=== PATIENT | female | born 1950 | race Caucasian/White ===

== ENCOUNTER 2019-03-16 01:40 | Outpatient (CLI) | payer OTHER, SELFPAY ==
[2019-03-16 08:59] LABS: Anion Gap 15.2 mmol/L (3-11); BUN 37 mg/dL (7-18); CO2 17.8 mmol/L (21.0-32.0); CREATININE 2.28 mg/dL (0.55-1.02); Calcium 7.3 mg/dL (8.5-10.1); Chloride 102 mmol/L (98-107); Estimated GFR 21.43 (mL/min/1.73m2); Glucose 122 mg/dL (70-100); Potassium 3.2 mmol/L (3.5-5.1); Sodium 135 mmol/L (136-145)
[2019-03-16 09:08] LABS: HCT 26.1 % (36.0-46.0); HGB 8.8 g/dL (12.0-15.5); Mean Corp. HGB Concentration 33.7 g/dL (32.0-36.0); Mean Corpuscular Hemoglobin 29.7 pg (27.0-33.0); Mean Corpuscular Volume 88.2 fL (80-95); Mean Platelet Volume 8.4 fL (8.0-11.0); RBC 2.96 m/cumm (4.00-5.20); RBC Distribution Width 15.6 % (11.7-14.6)
[2019-03-16 09:45] LABS: White Blood Cell Count 0.01 k/cumm (4.4-10.8)
[2019-03-16 09:46] LABS: Platelet Count 29 x1000/uL (130-400)
[2019-03-16 09:48] LABS: Diff Comment Diff Reviewed; RBC Morphology Normal
== END 2019-03-16 02:00 ==
PROVIDERS: Internal Medicine Hematology & Oncology; PCP Neuromusculoskeletal Medicine & OMM; Visit Provider Internal Medicine
DX: C90.00 Multiple myeloma not having achieved remission (principal)
CPT/HCPCS: 80048; 86850; 86900; 86901; 85025

== ENCOUNTER 2019-05-14 11:58 | Outpatient (CLI) | payer OTHER, SELFPAY ==
[2019-05-14 12:22] LABS: Anion Gap 9.6 mmol/L (3-11); BUN 20 mg/dL (7-18); CO2 29.4 mmol/L (21.0-32.0); CREATININE 1.96 mg/dL (0.55-1.02); Calcium 8.6 mg/dL (8.5-10.1); Chloride 101 mmol/L (98-107); Estimated GFR 25.52 (mL/min/1.73m2); Glucose 101 mg/dL (70-100); Potassium 3.8 mmol/L (3.5-5.1); Sodium 140 mmol/L (136-145)
== END 2019-05-14 12:18 ==
PROVIDERS: PCP Neuromusculoskeletal Medicine & OMM; Visit Provider Internal Medicine Nephrology
DX: N17.9 Acute kidney failure, unspecified (principal)
CPT/HCPCS: 36415; 80048

== ENCOUNTER 2019-05-16 10:08 | Outpatient (CLI) | payer OTHER, SELFPAY ==
[2019-05-16 10:34] LABS: Anion Gap 9.2 mmol/L (3-11); BUN 28 mg/dL (7-18); CO2 28.8 mmol/L (21.0-32.0); Calcium 8.2 mg/dL (8.5-10.1); Chloride 104 mmol/L (98-107); Estimated GFR 23.56 (mL/min/1.73m2); Glucose 94 mg/dL (70-100); Potassium 3.6 mmol/L (3.5-5.1); Sodium 142 mmol/L (136-145)
== END 2019-05-16 10:28 ==
PROVIDERS: Internal Medicine Nephrology; PCP Neuromusculoskeletal Medicine & OMM; Visit Provider Neuromusculoskeletal Medicine & OMM
DX: N17.9 Acute kidney failure, unspecified (principal)
CPT/HCPCS: 36415; 80048

== ENCOUNTER 2019-05-19 09:55 | Outpatient (CLI) | payer OTHER, SELFPAY ==
[2019-05-19 10:37] LABS: Anion Gap 10.8 mmol/L (3-11); BUN 27 mg/dL (7-18); CO2 24.2 mmol/L (21.0-32.0); CREATININE 1.94 mg/dL (0.55-1.02); Calcium 8.4 mg/dL (8.5-10.1); Chloride 108 mmol/L (98-107); Estimated GFR 25.82 (mL/min/1.73m2); Glucose 96 mg/dL (70-100); Potassium 4.3 mmol/L (3.5-5.1); Sodium 143 mmol/L (136-145)
== END 2019-05-19 10:15 ==
PROVIDERS: PCP Neuromusculoskeletal Medicine & OMM; Visit Provider Internal Medicine Nephrology
DX: N17.9 Acute kidney failure, unspecified (principal)
CPT/HCPCS: 36415; 80048

== ENCOUNTER 2019-05-25 11:07 | Outpatient (REF) | payer OTHER, SELFPAY ==
[2019-05-25 11:27] LABS: Abs Immature Grans 0.01 k/cumm (0.0-0.09); Absolute Basophil Count 0.05 k/cumm (0.0-0.2); Absolute Eosinophil Count 0.14 k/cumm (0.0-0.7); Absolute Lymphocyte Count 0.21 k/cumm (1.2-3.4); Absolute Monocyte Count 0.52 k/cumm (0.11-0.7); Basophils % 1.5; Eosinophils % 4.1; HCT 28.5 % (36.0-46.0); HGB 9.5 g/dL (12.0-15.5); Immature Grans % 0.3; Lymphocytes % 6.1; Mean Corp. HGB Concentration 33.3 g/dL (32.0-36.0); Mean Corpuscular Hemoglobin 36.3 pg (27.0-33.0); Mean Corpuscular Volume 108.8 fL (80-95); Mean Platelet Volume 9.5 fL (8.0-11.0); Monocytes % 15.2; Neutrophils % 72.8; Platelet Count 129 x1000/uL (130-400); RBC 2.62 m/cumm (4.00-5.20); RBC Distribution Width 17.9 % (11.7-14.6); White Blood Cell Count 3.43 k/cumm (4.4-10.8)
[2019-05-25 11:46] LABS: ALT 22 U/L (12-78); AST 14 U/L (15-37); Albumin 3.1 g/dL (3.4-5.0); Alkaline Phosphatase 84 U/L (46-116); Anion Gap 10.8 mmol/L (3-11); BUN 36 mg/dL (7-18); Bilirubin, Total 0.2 mg/dL (0.2-1.0); CO2 23.2 mmol/L (21.0-32.0); CREATININE 2.05 mg/dL (0.55-1.02); Calcium 8.8 mg/dL (8.5-10.1); Chloride 105 mmol/L (98-107); Estimated GFR 24.23 (mL/min/1.73m2); Glucose 112 mg/dL (70-100); Potassium 4.8 mmol/L (3.5-5.1); Sodium 139 mmol/L (136-145); Total Protein 8.1 g/dL (6.4-8.2)
[2019-05-25 11:52] LABS: Anisocytosis 2+; Diff Comment RBC Morph Reviewed; Macrocytosis 2+
[2019-05-26 12:07] LABS: Total Protein 7.5 g/dl (6.3-8.2)
[2019-05-26 15:43] LABS: IgA 13 mg/dL (85-499); IgG 1777 mg/dL (610-1616); IgM <12 mg/dL (35-242); Kappa Free Light Chain 66.46 mg/dl (0.33-1.94); Lambda Free Light Chain 1.02 mg/dl (0.57-2.63)
== END 2019-05-25 11:27 ==
LOC: LBN 11:07
PROVIDERS: PCP Neuromusculoskeletal Medicine & OMM; Visit Provider Internal Medicine Hematology & Oncology
DX: C90.00 Multiple myeloma not having achieved remission (principal); C90.20 Extramedullary plasmacytoma not having achieved remission
CPT/HCPCS: 80053; 82784; 83883; 84165; 85025

== ENCOUNTER 2019-06-11 10:57 | Outpatient (CLI) | payer OTHER, SELFPAY ==
[2019-06-11 11:19] LABS: Abs Immature Grans 0.03 k/cumm (0.0-0.09); Absolute Basophil Count 0.03 k/cumm (0.0-0.2); Absolute Eosinophil Count 0.44 k/cumm (0.0-0.7); Absolute Lymphocyte Count 0.27 k/cumm (1.2-3.4); Absolute Monocyte Count 0.99 k/cumm (0.11-0.7); Absolute Neutrophil Count 3.81 k/cumm (1.2-6.7); Basophils % 0.5; Eosinophils % 7.9; HCT 23.3 % (36.0-46.0); HGB 7.7 g/dL (12.0-15.5); Immature Grans % 0.5; Lymphocytes % 4.8; Mean Corpuscular Hemoglobin 35.6 pg (27.0-33.0); Mean Corpuscular Volume 107.9 fL (80-95); Mean Platelet Volume 10.4 fL (8.0-11.0); Monocytes % 17.8; Neutrophils % 68.5; Platelet Count 128 x1000/uL (130-400); RBC 2.16 m/cumm (4.00-5.20); RBC Distribution Width 15.6 % (11.7-14.6); White Blood Cell Count 5.57 k/cumm (4.4-10.8)
[2019-06-11 11:36] LABS: Diff Comment RBC Morph Reviewed; Macrocytosis 1+; Tear Drop Cells 2+
[2019-06-11 11:43] LABS: ALT 22 U/L (12-78); AST 12 U/L (15-37); Albumin 2.9 g/dL (3.4-5.0); Alkaline Phosphatase 83 U/L (46-116); Anion Gap 7.7 mmol/L (3-11); BUN 31 mg/dL (7-18); Bilirubin, Total 0.3 mg/dL (0.2-1.0); CO2 26.3 mmol/L (21.0-32.0); CREATININE 1.29 mg/dL (0.55-1.02); Calcium 8.7 mg/dL (8.5-10.1); Chloride 103 mmol/L (98-107); Estimated GFR 41.35 (mL/min/1.73m2); Glucose 114 mg/dL (70-100); Potassium 4.4 mmol/L (3.5-5.1); Sodium 137 mmol/L (136-145); Total Protein 7.5 g/dL (6.4-8.2)
[2019-06-12 10:01] LABS: IgA <13 mg/dL (85-499); IgG 1297 mg/dL (610-1616); IgM <12 mg/dL (35-242); Kappa Free Light Chain 22.42 mg/dl (0.33-1.94); Lambda Free Light Chain 1.07 mg/dl (0.57-2.63)
[2019-06-12 12:45] LABS: Albumin 50.8 % (55.8-66.1); Monoclonal Spike 14.1 %; Total Protein 6.6 g/dl (6.3-8.2)
== END 2019-06-11 11:17 ==
PROVIDERS: PCP Neuromusculoskeletal Medicine & OMM; Visit Provider Internal Medicine Hematology & Oncology
DX: C90.00 Multiple myeloma not having achieved remission (principal); C90.20 Extramedullary plasmacytoma not having achieved remission
CPT/HCPCS: 36415; 80053; 82784; 83883; 84165; 85025

== ENCOUNTER 2019-08-24 09:27 | Outpatient (CLI) | payer OTHER, SELFPAY ==
[2019-08-24 10:00] LABS: Absolute Basophil Count 0.05 k/cumm (0.0-0.2); Absolute Eosinophil Count 0.08 k/cumm (0.0-0.7); Absolute Lymphocyte Count 0.21 k/cumm (1.2-3.4); Absolute Monocyte Count 0.12 k/cumm (0.11-0.7); Basophils % 3.8; Eosinophils % 6.1; Mean Corp. HGB Concentration 33.3 g/dL (32.0-36.0); Mean Corpuscular Hemoglobin 35.6 pg (27.0-33.0); Mean Corpuscular Volume 106.8 fL (80-95); Mean Platelet Volume 9.3 fL (8.0-11.0); Monocytes % 9.2; Neutrophils % 64.9; Platelet Count 146 x1000/uL (130-400); RBC 3.09 m/cumm (4.00-5.20); RBC Distribution Width 15.6 % (11.7-14.6)
[2019-08-24 10:16] LABS: White Blood Cell Count 1.31 k/cumm (4.4-10.8)
[2019-08-24 10:17] LABS: Absolute Neutrophil Count 0.85 k/cumm (1.2-6.7); Diff Comment Diff Reviewed
[2019-08-24 10:18] LABS: Anisocytosis 1+; Macrocytosis 3+
== END 2019-08-24 09:47 ==
PROVIDERS: PCP Neuromusculoskeletal Medicine & OMM; Visit Provider Internal Medicine Hematology & Oncology
DX: C90.00 Multiple myeloma not having achieved remission (principal); C90.20 Extramedullary plasmacytoma not having achieved remission
CPT/HCPCS: 36415; 85025

== ENCOUNTER 2020-03-10 01:48 | Outpatient (CLI) | payer OTHER, SELFPAY ==
[2020-03-10 11:23] LABS: Abs Immature Grans 0.01 k/cumm (0.0-0.09); Absolute Basophil Count 0.08 k/cumm (0.0-0.2); Absolute Eosinophil Count 0.21 k/cumm (0.0-0.7); Absolute Lymphocyte Count 0.44 k/cumm (1.2-3.4); Absolute Monocyte Count 0.45 k/cumm (0.11-0.7); Absolute Neutrophil Count 1.41 k/cumm (1.2-6.7); Basophils % 3.1; Eosinophils % 8.1; HCT 33.1 % (36.0-46.0); HGB 10.8 g/dL (12.0-15.5); Immature Grans % 0.4 %; Lymphocytes % 16.9; Mean Corp. HGB Concentration 32.6 g/dL (32.0-36.0); Mean Corpuscular Hemoglobin 33.8 pg (27.0-33.0); Mean Corpuscular Volume 103.4 fL (80-95); Mean Platelet Volume 11.5 fL (8.0-11.0); Monocytes % 17.3; Neutrophils % 54.2; RBC Distribution Width 14.9 % (11.7-14.6)
[2020-03-10 11:28] LABS: ALT 51 U/L (14-59); AST 27 U/L (15-37); Alkaline Phosphatase 71 U/L (46-116); BUN 30 mg/dL (7-18); Bilirubin, Total 0.3 mg/dL (0.2-1.0); CREATININE 1.12 mg/dL (0.55-1.02); Calcium 8.9 mg/dL (8.5-10.1); Chloride 103 mmol/L (98-107); Estimated GFR 48.52 (mL/min/1.73m2); Glucose 87 mg/dL (74-106); Sodium 141 mmol/L (136-145); Total Protein 7.8 g/dL (6.4-8.2)
[2020-03-10 11:36] LABS: Platelet Count 69 x1000/uL (130-400)
[2020-03-10 11:37] LABS: Diff Comment PLT Morph Reviewed; RBC Morphology Normal
[2020-03-11 13:58] LABS: Albumin 60.3 % (55.8-66.1); Monoclonal Spike 7.3 % (None Seen); Total Protein 7.6 g/dL (6.3-8.2)
[2020-03-14 12:02] LABS: IgA 51 mg/dL (85-499); IgG 1557 mg/dL (610-1,616); IgM 32 mg/dL (35-242); Kappa Free Light Chain 18.41 mg/dL (0.33-1.94)
== END 2020-03-10 02:08 ==
PROVIDERS: PCP Neuromusculoskeletal Medicine & OMM; Visit Provider Internal Medicine Hematology & Oncology
DX: C90.00 Multiple myeloma not having achieved remission (principal); C90.20 Extramedullary plasmacytoma not having achieved remission
CPT/HCPCS: 36415; 80053; 82784; 83883; 84165; 85025

== ENCOUNTER 2020-05-05 02:31 | Outpatient (CLI) | payer OTHER, SELFPAY ==
[2020-05-05 12:15] LABS: Abs Immature Grans 0.01 k/cumm (0.0-0.09); Absolute Basophil Count 0.07 k/cumm (0.0-0.2); Absolute Lymphocyte Count 0.35 k/cumm (1.2-3.4); Absolute Monocyte Count 0.81 k/cumm (0.11-0.7); Absolute Neutrophil Count 1.69 k/cumm (1.2-6.7); Basophils % 2.2; Eosinophils % 6.4; HGB 10.3 g/dL (12.0-15.5); Immature Grans % 0.3 %; Lymphocytes % 11.2; Mean Corp. HGB Concentration 33.2 g/dL (32.0-36.0); Mean Corpuscular Hemoglobin 35.2 pg (27.0-33.0); Mean Corpuscular Volume 105.8 fL (80-95); Mean Platelet Volume 10.8 fL (8.0-11.0); Monocytes % 25.9; Platelet Count 122 x1000/uL (130-400); RBC 2.93 m/cumm (4.00-5.20); RBC Distribution Width 14.5 % (11.7-14.6); White Blood Cell Count 3.13 k/cumm (4.4-10.8)
[2020-05-05 12:38] LABS: Basophilic Stippling Present; Diff Comment RBC Morph Reviewed; Macrocytosis 3+
[2020-05-05 12:39] LABS: Polychromasia Present
[2020-05-05 12:40] LABS: Poikilocytes 1+
== END 2020-05-05 02:51 ==
PROVIDERS: PCP Neuromusculoskeletal Medicine & OMM; Visit Provider Internal Medicine Hematology & Oncology
DX: C90.01 Multiple myeloma in remission (principal)
CPT/HCPCS: 36415; 85025

== ENCOUNTER 2020-08-18 02:11 | Outpatient (RCR) | payer OTHER, SELFPAY ==
[2020-08-04 09:17] LABS: Abs Immature Grans 0.01 10^3/uL (0.0-0.06); Absolute Basophil Count 0.01 10^3/uL (0.0-0.2); Absolute Eosinophil Count 0.01 10^3/uL (0.0-0.7); Absolute Monocyte Count 0.44 10^3/uL (0.1-0.8); Absolute Neutrophil Count 1.51 10^3/uL (1.2-6.7); Basophils % 0.5; Eosinophils % 0.5; HCT 23.3 % (36.0-46.0); Immature Grans % 0.5; Lymphocytes % 4.8; MCH 35.9 pg (27.0-33.0); MCHC 34.3 % (32.0-36.0); MCV 104.5 fL (80-95); MPV 10.1 fL (8.0-11.0); Monocytes % 21.2; Neutrophils % 72.5; Nucleated RBC 0 %; Platelet Count 115 10^3/uL (130-400); RBC 2.23 10^6/uL (3.93-5.22); RDW 25.2 % (11.7-14.6); RDW-SD 87.9 fL; WBC 2.08 10^3/uL (4.4-10.8)
[2020-08-04] MEDS: Normal Saline Flush 10 ML SYR IVP (09:38)
[2020-08-04 09:40] LABS: Anisocytosis 3+; Diff Comment RBC Morph Reviewed
[2020-08-04 09:41] LABS: Macrocytosis 2+; Microcytosis 1+; Polychromasia Present
[2020-08-04 09:42] LABS: Poikilocytes 1+
[2020-08-04 09:44] LABS: ALT 21 U/L (14-59); AST 16 U/L (15-37); Albumin 3.3 g/dL (3.4-5.0); Alkaline Phosphatase 176 U/L (46-116); Anion Gap 7.1 mmol/L (3-11); BUN 13 mg/dL (7-18); Bilirubin, Total 0.3 mg/dL (0.2-1.0); CO2 26.9 mmol/L (21.0-32.0); CREATININE 1.31 mg/dL (0.55-1.02); Calcium 8.1 mg/dL (8.5-10.1); Chloride 104 mmol/L (98-107); Estimated GFR 40.38 (mL/min/1.73m2); Glucose 91 mg/dL (74-106); Potassium 3.3 mmol/L (3.5-5.1); Sodium 138 mmol/L (136-145); Total Protein 7.6 g/dL (6.4-8.2)
[2020-08-11] MEDS: Normal Saline Flush 10 ML SYR IVP (08:23)
[2020-08-11 08:26] LABS: Abs Immature Grans 0.01 10^3/uL (0.0-0.06); Absolute Basophil Count 0.01 10^3/uL (0.0-0.2); Absolute Eosinophil Count 0.02 10^3/uL (0.0-0.7); Absolute Lymphocyte Count 0.07 10^3/uL (1.2-3.4); Absolute Monocyte Count 0.39 10^3/uL (0.1-0.8); Absolute Neutrophil Count 1.84 10^3/uL (1.2-6.7); Basophils % 0.4; Eosinophils % 0.9; HCT 24.4 % (36.0-46.0); HGB 8.1 g/dL (11.2-15.7); Immature Grans % 0.4; MCH 35.8 pg (27.0-33.0); MCHC 33.2 % (32.0-36.0); MPV 11.1 fL (8.0-11.0); Monocytes % 16.7; Neutrophils % 78.6; Nucleated RBC 0 %; RBC 2.26 10^6/uL (3.93-5.22); RDW 25.8 % (11.7-14.6); RDW-SD 94.5 fL; WBC 2.34 10^3/uL (4.4-10.8)
[2020-08-11 08:39] LABS: ALT 18 U/L (14-59); AST 12 U/L (15-37); Albumin 3.1 g/dL (3.4-5.0); Alkaline Phosphatase 141 U/L (46-116); Anion Gap 8.6 mmol/L (3-11); BUN 14 mg/dL (7-18); Bilirubin, Total 0.3 mg/dL (0.2-1.0); CO2 26.4 mmol/L (21.0-32.0); CREATININE 1.24 mg/dL (0.55-1.02); Chloride 107 mmol/L (98-107); Estimated GFR 43.02 (mL/min/1.73m2); Glucose 99 mg/dL (74-106); Sodium 142 mmol/L (136-145); Total Protein 6.9 g/dL (6.4-8.2)
[2020-08-11 09:00] LABS: Diff Comment RBC Morph Reviewed; Platelet Count 85 10^3/uL (130-400)
[2020-08-11 09:01] LABS: Anisocytosis 3+; Macrocytosis 2+; Poikilocytes 2+
[2020-08-18] MEDS: Normal Saline Flush 10 ML SYR IVP (08:21)
[2020-08-18 08:26] LABS: Absolute Eosinophil Count 0.03 10^3/uL (0.0-0.7); Absolute Lymphocyte Count 0.14 10^3/uL (1.2-3.4); Absolute Monocyte Count 0.36 10^3/uL (0.1-0.8); Absolute Neutrophil Count 1.38 10^3/uL (1.2-6.7); Eosinophils % 1.6; HCT 21.4 % (36.0-46.0); HGB 7.3 g/dL (11.2-15.7); Lymphocytes % 7.3; MCH 36.5 pg (27.0-33.0); MCHC 34.1 % (32.0-36.0); MPV 11.3 fL (8.0-11.0); Monocytes % 18.8; Neutrophils % 72.3; Nucleated RBC 0 %
[2020-08-18 08:48] LABS: WBC 1.91 10^3/uL (4.4-10.8)
[2020-08-18 08:49] LABS: Platelet Count 76 10^3/uL (130-400)
[2020-08-18 08:50] LABS: Anisocytosis 3+; Diff Comment Diff Reviewed; Hypochromasia 2+; Macrocytosis 2+; Microcytosis 2+
[2020-08-18 08:51] LABS: Polychromasia Present
[2020-08-18 08:52] LABS: Poikilocytes 2+
[2020-08-18 09:14] LABS: ALT 12 U/L (14-59); AST 14 U/L (15-37); Albumin 3.2 g/dL (3.4-5.0); Alkaline Phosphatase 117 U/L (46-116); BUN 12 mg/dL (7-18); Bilirubin, Total 0.3 mg/dL (0.2-1.0); CREATININE 1.09 mg/dL (0.55-1.02); Calcium 8.1 mg/dL (8.5-10.1); Chloride 108 mmol/L (98-107); Estimated GFR 49.92 (mL/min/1.73m2); Glucose 109 mg/dL (74-106); Sodium 143 mmol/L (136-145); TSH 4.74 uIU/mL (0.36-3.74); Total Protein 6.6 g/dL (6.4-8.2)
[2020-08-18 09:18] LABS: Potassium 2.9 mmol/L (3.5-5.1)
== END 2020-08-24 23:59 | disposition home or self-care (01) ==
LOC: INF 02:11
PROVIDERS: PCP Neuromusculoskeletal Medicine & OMM; Visit Provider Internal Medicine Hematology & Oncology
DX: E03.9 Hypothyroidism, unspecified (principal); C90.02 Multiple myeloma in relapse
CPT/HCPCS: 36415; 36591; 80053; 84443; 85025

== ENCOUNTER 2020-09-15 03:13 | Outpatient (RCR) | payer OTHER, SELFPAY ==
[2020-08-25 08:39] LABS: Abs Immature Grans 0.01 10^3/uL (0.0-0.06); Absolute Basophil Count 0.01 10^3/uL (0.0-0.2); Absolute Eosinophil Count 0.03 10^3/uL (0.0-0.7); Absolute Lymphocyte Count 0.16 10^3/uL (1.2-3.4); Absolute Monocyte Count 0.46 10^3/uL (0.1-0.8); Absolute Neutrophil Count 2.01 10^3/uL (1.2-6.7); Basophils % 0.4; Eosinophils % 1.1; HCT 23.6 % (36.0-46.0); Immature Grans % 0.4; MCH 38.6 pg (27.0-33.0); MCHC 33.9 % (32.0-36.0); MPV 12.2 fL (8.0-11.0); Monocytes % 17.2; Neutrophils % 74.9; Nucleated RBC 0 %; Platelet Count 100 10^3/uL (130-400); RBC 2.07 10^6/uL (3.93-5.22); RDW 22.8 % (11.7-14.6); RDW-SD 91.3 fL; WBC 2.68 10^3/uL (4.4-10.8)
[2020-08-25 08:50] LABS: ALT 12 U/L (14-59); AST 10 U/L (15-37); Albumin 3.3 g/dL (3.4-5.0); Alkaline Phosphatase 110 U/L (46-116); Anion Gap 7.1 mmol/L (3-11); BUN 9 mg/dL (7-18); Bilirubin, Total 0.3 mg/dL (0.2-1.0); CO2 27.9 mmol/L (21.0-32.0); CREATININE 0.97 mg/dL (0.55-1.02); Calcium 7.9 mg/dL (8.5-10.1); Chloride 107 mmol/L (98-107); Estimated GFR 57.11 (mL/min/1.73m2); Glucose 129 mg/dL (74-106); Potassium 3.4 mmol/L (3.5-5.1); Sodium 142 mmol/L (136-145); Total Protein 6.5 g/dL (6.4-8.2)
[2020-08-25 09:04] LABS: Anisocytosis 3+; Diff Comment RBC Morph Reviewed; Macrocytosis 2+; Microcytosis 1+; Polychromasia Present
[2020-08-25 09:05] LABS: Poikilocytes 2+
[2020-09-01] MEDS: Normal Saline Flush 10 ML SYR IVP (08:17)
[2020-09-01 08:28] LABS: Abs Immature Grans 0.01 10^3/uL (0.0-0.06); Absolute Basophil Count 0.02 10^3/uL (0.0-0.2); Absolute Eosinophil Count 0.04 10^3/uL (0.0-0.7); Absolute Lymphocyte Count 0.17 10^3/uL (1.2-3.4); Absolute Monocyte Count 0.44 10^3/uL (0.1-0.8); Absolute Neutrophil Count 2.72 10^3/uL (1.2-6.7); Basophils % 0.6; Eosinophils % 1.2; HCT 27.7 % (36.0-46.0); HGB 9.1 g/dL (11.2-15.7); Immature Grans % 0.3; MCH 37.4 pg (27.0-33.0); MCHC 32.9 % (32.0-36.0); MPV 10.5 fL (8.0-11.0); Monocytes % 12.9; Nucleated RBC 0 %; Platelet Count 163 10^3/uL (130-400); RBC 2.43 10^6/uL (3.93-5.22); RDW 19.4 % (11.7-14.6); RDW-SD 81.3 fL
[2020-09-01 08:41] LABS: ALT 15 U/L (14-59); AST 11 U/L (15-37); Albumin 3.5 g/dL (3.4-5.0); Alkaline Phosphatase 107 U/L (46-116); Anion Gap 11.4 mmol/L (3-11); BUN 13 mg/dL (7-18); Bilirubin, Total 0.3 mg/dL (0.2-1.0); CO2 25.6 mmol/L (21.0-32.0); CREATININE 1.08 mg/dL (0.55-1.02); Calcium 8.3 mg/dL (8.5-10.1); Chloride 105 mmol/L (98-107); Estimated GFR 50.45 (mL/min/1.73m2); Glucose 107 mg/dL (74-106); Potassium 3.3 mmol/L (3.5-5.1); Sodium 142 mmol/L (136-145); Total Protein 6.7 g/dL (6.4-8.2)
[2020-09-01 08:43] LABS: Diff Comment Diff Reviewed; Microcytosis 2+; Polychromasia Present
[2020-09-01 08:44] LABS: Poikilocytes 1+
[2020-09-02 12:06] LABS: IgA <13 mg/dL (85-499); IgG 1010 mg/dL (610-1,616); IgM <12 mg/dL (35-242); Kappa Free Light Chain 3.75 mg/dL (0.33-1.94); Lambda Free Light Chain <0.44 mg/dL (0.57-2.63)
[2020-09-02 12:38] LABS: Albumin 60.8 % (55.8-66.1); Comment (See Note); Monoclonal Spike 11.4 % (None Seen); Total Protein 6.6 g/dL (6.3-8.2)
[2020-09-02 15:25] LABS: Immunotyping, Serum (See Note)
[2020-09-08] MEDS: Normal Saline Flush 10 ML SYR IVP (08:23)
[2020-09-08 08:27] LABS: Absolute Eosinophil Count 0.06 10^3/uL (0.0-0.7); Absolute Lymphocyte Count 0.16 10^3/uL (1.2-3.4); Absolute Monocyte Count 0.52 10^3/uL (0.1-0.8); Absolute Neutrophil Count 2.87 10^3/uL (1.2-6.7); Eosinophils % 1.7; HCT 27.4 % (36.0-46.0); Lymphocytes % 4.4; MCH 38.3 pg (27.0-33.0); MCHC 32.8 % (32.0-36.0); MCV 116.6 fL (80-95); MPV 11.1 fL (8.0-11.0); Monocytes % 14.4; Neutrophils % 79.5; Nucleated RBC 0 %; RBC 2.35 10^6/uL (3.93-5.22); RDW 17.5 % (11.7-14.6); RDW-SD 75.7 fL; WBC 3.61 10^3/uL (4.4-10.8)
[2020-09-08 08:47] LABS: Anisocytosis 2+; Diff Comment RBC Morph Reviewed; Macrocytosis 3+; Platelet Count 90 10^3/uL (130-400)
[2020-09-08 08:48] LABS: Poikilocytes 2+; Polychromasia Present
[2020-09-15] MEDS: Normal Saline Flush 10 ML SYR IVP (08:19)
[2020-09-15 08:34] LABS: Abs Immature Grans 0.02 10^3/uL (0.0-0.06); Absolute Basophil Count 0.01 10^3/uL (0.0-0.2); Absolute Eosinophil Count 0.05 10^3/uL (0.0-0.7); Absolute Lymphocyte Count 0.11 10^3/uL (1.2-3.4); Absolute Monocyte Count 0.46 10^3/uL (0.1-0.8); Basophils % 0.3; Eosinophils % 1.4; HCT 28.9 % (36.0-46.0); HGB 9.4 g/dL (11.2-15.7); Immature Grans % 0.5; MCH 38.1 pg (27.0-33.0); MCHC 32.5 % (32.0-36.0); Monocytes % 12.6; Neutrophils % 82.2; Nucleated RBC 0 %; RBC 2.47 10^6/uL (3.93-5.22); WBC 3.65 10^3/uL (4.4-10.8)
[2020-09-15 08:47] LABS: Anisocytosis 2+; Diff Comment PLT Morph Reviewed; Macrocytosis 3+; Platelet Count 92 10^3/uL (130-400)
[2020-09-15 08:48] LABS: Poikilocytes 2+; Polychromasia Present
== END 2020-09-24 23:59 | disposition home or self-care (01) ==
LOC: INF 03:13
PROVIDERS: PCP Neuromusculoskeletal Medicine & OMM; Visit Provider Internal Medicine Hematology & Oncology
DX: C90.02 Multiple myeloma in relapse (principal)
CPT/HCPCS: 36591; 80053; 82784; 83883; 84165; 85025; 86320

== ENCOUNTER 2020-10-13 01:28 | Outpatient (RCR) | payer OTHER, SELFPAY ==
[2020-09-29 08:25] LABS: Abs Immature Grans 0.01 10^3/uL (0.0-0.06); Absolute Basophil Count 0.04 10^3/uL (0.0-0.2); Absolute Eosinophil Count 0.08 10^3/uL (0.0-0.7); Absolute Lymphocyte Count 0.16 10^3/uL (1.2-3.4); Absolute Monocyte Count 0.65 10^3/uL (0.1-0.8); Absolute Neutrophil Count 4.09 10^3/uL (1.2-6.7); Basophils % 0.8; Eosinophils % 1.6; HCT 35.5 % (36.0-46.0); HGB 11.7 g/dL (11.2-15.7); Immature Grans % 0.2; Lymphocytes % 3.2; MCV 115.3 fL (80-95); MPV 10.5 fL (8.0-11.0); Monocytes % 12.9; Neutrophils % 81.3; Nucleated RBC 0 %; Platelet Count 185 10^3/uL (130-400); RBC 3.08 10^6/uL (3.93-5.22); RDW 14.8 % (11.7-14.6); RDW-SD 63.3 fL; WBC 5.03 10^3/uL (4.4-10.8)
[2020-09-29] MEDS: Normal Saline Flush 10 ML SYR IVP (08:39)
[2020-09-29 08:43] LABS: Anisocytosis 1+; Diff Comment RBC Morph Reviewed; Macrocytosis 3+; Polychromasia Present
[2020-09-29 08:48] LABS: ALT 15 U/L (14-59); AST 11 U/L (15-37); Albumin 3.9 g/dL (3.4-5.0); Alkaline Phosphatase 75 U/L (46-116); Anion Gap 8.3 mmol/L (3-11); BUN 18 mg/dL (7-18); Bilirubin, Total 0.3 mg/dL (0.2-1.0); CO2 26.7 mmol/L (21.0-32.0); CREATININE 1.04 mg/dL (0.55-1.02); Calcium 8.7 mg/dL (8.5-10.1); Chloride 106 mmol/L (98-107); Glucose 104 mg/dL (74-106); Potassium 4.2 mmol/L (3.5-5.1); Sodium 141 mmol/L (136-145); Total Protein 7.1 g/dL (6.4-8.2)
[2020-10-06] MEDS: Normal Saline Flush 10 ML SYR IVP (08:08)
[2020-10-06 08:50] LABS: Abs Immature Grans 0.01 10^3/uL (0.0-0.06); Absolute Basophil Count 0.02 10^3/uL (0.0-0.2); Absolute Eosinophil Count 0.07 10^3/uL (0.0-0.7); Absolute Lymphocyte Count 0.11 10^3/uL (1.2-3.4); Absolute Monocyte Count 0.71 10^3/uL (0.1-0.8); Basophils % 0.5; Eosinophils % 1.7; HCT 35.6 % (36.0-46.0); HGB 11.9 g/dL (11.2-15.7); Immature Grans % 0.2; Lymphocytes % 2.6; MCH 38.1 pg (27.0-33.0); MCHC 33.4 % (32.0-36.0); MCV 114.1 fL (80-95); MPV 11.6 fL (8.0-11.0); Monocytes % 16.8; Neutrophils % 78.2; Nucleated RBC 0 %; RBC 3.12 10^6/uL (3.93-5.22); RDW-SD 58.7 fL; WBC 4.22 10^3/uL (4.4-10.8)
[2020-10-06 09:10] LABS: Diff Comment RBC Morph Reviewed; Macrocytosis 3+; Platelet Count 104 10^3/uL (130-400)
[2020-10-06 09:11] LABS: Poikilocytes 2+
[2020-10-06 09:31] LABS: ALT 15 U/L (14-59); AST 11 U/L (15-37); Albumin 3.9 g/dL (3.4-5.0); Alkaline Phosphatase 73 U/L (46-116); Anion Gap 9.4 mmol/L (3-11); BUN 18 mg/dL (7-18); Bilirubin, Total 0.3 mg/dL (0.2-1.0); CO2 26.6 mmol/L (21.0-32.0); CREATININE 1.01 mg/dL (0.55-1.02); Calcium 8.9 mg/dL (8.5-10.1); Chloride 106 mmol/L (98-107); Estimated GFR 54.51 (mL/min/1.73m2); Glucose 108 mg/dL (74-106); Potassium 3.9 mmol/L (3.5-5.1); Sodium 142 mmol/L (136-145)
[2020-10-07 11:52] LABS: IgA 3 mg/dL (61-356); IgG 774 mg/dL (767-1590); IgM 5 mg/dL (37-286)
[2020-10-07 11:54] LABS: Albumin 3.7 g/dL (3.4-4.7); Total Protein 6.7 g/dL (6.3-7.9)
[2020-10-07 11:55] LABS: Monoclonal Spike 0.7 g/dL
[2020-10-07 11:56] LABS: Comment See Comments
[2020-10-07 11:58] LABS: Immunotyping, Serum See Comments
[2020-10-13 09:05] LABS: Abs Immature Grans 0.02 10^3/uL (0.0-0.06); Absolute Basophil Count 0.02 10^3/uL (0.0-0.2); Absolute Eosinophil Count 0.08 10^3/uL (0.0-0.7); Absolute Lymphocyte Count 0.16 10^3/uL (1.2-3.4); Absolute Monocyte Count 0.72 10^3/uL (0.1-0.8); Absolute Neutrophil Count 4.76 10^3/uL (1.2-6.7); Basophils % 0.3; Eosinophils % 1.4; HCT 34.6 % (36.0-46.0); HGB 11.8 g/dL (11.2-15.7); Immature Grans % 0.3; Lymphocytes % 2.8; MCH 38.3 pg (27.0-33.0); MCHC 34.1 % (32.0-36.0); MCV 112.3 fL (80-95); MPV 9.7 fL (8.0-11.0); Monocytes % 12.5; Neutrophils % 82.7; Nucleated RBC 0 %; Platelet Count 101 10^3/uL (130-400); RBC 3.08 10^6/uL (3.93-5.22); RDW 13.5 % (11.7-14.6); RDW-SD 55.9 fL; WBC 5.76 10^3/uL (4.4-10.8)
[2020-10-13] MEDS: Normal Saline Flush 10 ML SYR IVP (09:17)
[2020-10-13 09:42] LABS: ALT 18 U/L (14-59); AST 12 U/L (15-37); Albumin 3.8 g/dL (3.4-5.0); Alkaline Phosphatase 72 U/L (46-116); BUN 22 mg/dL (7-18); Bilirubin, Total 0.2 mg/dL (0.2-1.0); CREATININE 0.99 mg/dL (0.55-1.02); Calcium 8.7 mg/dL (8.5-10.1); Chloride 106 mmol/L (98-107); Estimated GFR 55.78 (mL/min/1.73m2); Glucose 120 mg/dL (74-106); Sodium 142 mmol/L (136-145); Total Protein 6.9 g/dL (6.4-8.2)
== END 2020-10-24 23:59 | disposition home or self-care (01) ==
LOC: INF 01:28
PROVIDERS: PCP Neuromusculoskeletal Medicine & OMM; Visit Provider Internal Medicine Hematology & Oncology
DX: C90.02 Multiple myeloma in relapse (principal)
CPT/HCPCS: 36591; 80053; 82784; 83883; 84165; 85025; 86320

== ENCOUNTER 2020-11-10 00:56 | Outpatient (RCR) | payer OTHER, SELFPAY ==
[2020-10-27] MEDS: Normal Saline Flush 10 ML SYR IVP (08:21)
[2020-10-27 08:24] LABS: Abs Immature Grans 0.02 10^3/uL (0.0-0.06); Absolute Basophil Count 0.02 10^3/uL (0.0-0.2); Absolute Eosinophil Count 0.09 10^3/uL (0.0-0.7); Absolute Lymphocyte Count 0.17 10^3/uL (1.2-3.4); Absolute Monocyte Count 0.56 10^3/uL (0.1-0.8); Absolute Neutrophil Count 4.66 10^3/uL (1.2-6.7); Basophils % 0.4; Eosinophils % 1.6; HCT 32.8 % (36.0-46.0); HGB 10.8 g/dL (11.2-15.7); Immature Grans % 0.4; Lymphocytes % 3.1; MCH 36.4 pg (27.0-33.0); MCHC 32.9 % (32.0-36.0); MCV 110.4 fL (80-95); MPV 10.4 fL (8.0-11.0); Monocytes % 10.1; Neutrophils % 84.4; Nucleated RBC 0 %; Platelet Count 180 10^3/uL (130-400); RBC 2.97 10^6/uL (3.93-5.22); RDW 12.8 % (11.7-14.6); RDW-SD 51.7 fL; WBC 5.52 10^3/uL (4.4-10.8)
[2020-10-27 08:49] LABS: ALT 20 U/L (14-59); AST 13 U/L (15-37); Albumin 3.9 g/dL (3.4-5.0); Alkaline Phosphatase 75 U/L (46-116); BUN 22 mg/dL (7-18); Bilirubin, Total 0.3 mg/dL (0.2-1.0); CREATININE 1.08 mg/dL (0.55-1.02); Calcium 8.5 mg/dL (8.5-10.1); Chloride 107 mmol/L (98-107); Estimated GFR 50.45 (mL/min/1.73m2); Glucose 120 mg/dL (74-106); Potassium 3.4 mmol/L (3.5-5.1); Sodium 143 mmol/L (136-145); Total Protein 6.8 g/dL (6.4-8.2)
[2020-10-27 09:12] LABS: Anisocytosis 1+; Diff Comment RBC Morph Reviewed; Hypochromasia 1+; Macrocytosis 2+; Poikilocytes 1+
[2020-10-28 10:40] LABS: IgA <13 mg/dL (85-499); IgG 537 mg/dL (610-1,616); IgM <12 mg/dL (35-242); Kappa Free Light Chain 1.54 mg/dL (0.33-1.94); Lambda Free Light Chain <0.44 mg/dL (0.57-2.63)
[2020-10-28 15:31] LABS: Albumin 65.3 % (55.8-66.1); Comment (See Note); Monoclonal Spike 6.5 % (None Seen); Total Protein 6.5 g/dL (6.3-8.2)
[2020-11-03] MEDS: Normal Saline Flush 10 ML SYR IVP (07:58)
[2020-11-03 08:03] LABS: Abs Immature Grans 0.01 10^3/uL (0.0-0.06); Absolute Lymphocyte Count 0.15 10^3/uL (1.2-3.4); Absolute Neutrophil Count 4.15 10^3/uL (1.2-6.7); Eosinophils % 1.9; HCT 32.1 % (36.0-46.0); HGB 10.8 g/dL (11.2-15.7); Immature Grans % 0.2; Lymphocytes % 2.9; MCH 36.2 pg (27.0-33.0); MCHC 33.6 % (32.0-36.0); MCV 107.7 fL (80-95); MPV 11.4 fL (8.0-11.0); Monocytes % 15.4; Neutrophils % 79.6; Nucleated RBC 0 %; Platelet Count 100 10^3/uL (130-400); RBC 2.98 10^6/uL (3.93-5.22); RDW 12.7 % (11.7-14.6); RDW-SD 50.1 fL; WBC 5.21 10^3/uL (4.4-10.8)
[2020-11-03 08:22] LABS: ALT 20 U/L (14-59); AST 11 U/L (15-37); Albumin 3.9 g/dL (3.4-5.0); Alkaline Phosphatase 74 U/L (46-116); BUN 19 mg/dL (7-18); Bilirubin, Total 0.3 mg/dL (0.2-1.0); CREATININE 1.09 mg/dL (0.55-1.02); Calcium 8.7 mg/dL (8.5-10.1); Chloride 107 mmol/L (98-107); Estimated GFR 49.92 (mL/min/1.73m2); Glucose 100 mg/dL (74-106); Potassium 4.2 mmol/L (3.5-5.1); Sodium 141 mmol/L (136-145); Total Protein 6.8 g/dL (6.4-8.2)
[2020-11-10] MEDS: Normal Saline Flush 10 ML SYR IVP (08:01)
[2020-11-10 08:18] LABS: Abs Immature Grans 0.03 10^3/uL (0.0-0.06); Absolute Basophil Count 0.02 10^3/uL (0.0-0.2); Absolute Eosinophil Count 0.13 10^3/uL (0.0-0.7); Absolute Lymphocyte Count 0.18 10^3/uL (1.2-3.4); Absolute Monocyte Count 0.88 10^3/uL (0.1-0.8); Absolute Neutrophil Count 5.66 10^3/uL (1.2-6.7); Basophils % 0.3; Eosinophils % 1.9; HCT 30.8 % (36.0-46.0); HGB 10.2 g/dL (11.2-15.7); Immature Grans % 0.4; Lymphocytes % 2.6; MCH 36.2 pg (27.0-33.0); MCHC 33.1 % (32.0-36.0); MCV 109.2 fL (80-95); MPV 10.4 fL (8.0-11.0); Monocytes % 12.8; Nucleated RBC 0 %; Platelet Count 109 10^3/uL (130-400); RBC 2.82 10^6/uL (3.93-5.22); RDW 12.9 % (11.7-14.6); RDW-SD 51.1 fL
[2020-11-10 08:40] LABS: ALT 31 U/L (14-59); AST 14 U/L (15-37); Albumin 3.9 g/dL (3.4-5.0); Alkaline Phosphatase 74 U/L (46-116); Anion Gap 10.4 mmol/L (3-11); BUN 19 mg/dL (7-18); Bilirubin, Total 0.3 mg/dL (0.2-1.0); CO2 26.6 mmol/L (21.0-32.0); CREATININE 1.18 mg/dL (0.55-1.02); Calcium 8.6 mg/dL (8.5-10.1); Chloride 106 mmol/L (98-107); Estimated GFR 45.55 (mL/min/1.73m2); FREE T4 1.27 ng/dL (0.76-1.46); Glucose 93 mg/dL (74-106); Potassium 4.2 mmol/L (3.5-5.1); Sodium 143 mmol/L (136-145); TSH 4.15 uIU/mL (0.36-3.74); Total Protein 6.9 g/dL (6.4-8.2)
== END 2020-11-24 23:59 | disposition home or self-care (01) ==
LOC: INF 00:56
PROVIDERS: PCP Neuromusculoskeletal Medicine & OMM; Visit Provider Internal Medicine Hematology & Oncology
DX: C90.02 Multiple myeloma in relapse (principal)
CPT/HCPCS: 36591; 80053; 82784; 83883; 84165; 84439; 84443; 85025

== ENCOUNTER 2021-03-23 01:49 | Outpatient (RCR) | payer OTHER, SELFPAY ==
[2021-03-23] MEDS: Normal Saline Flush 10 ML SYR IVP (09:20)
[2021-03-23 09:26] LABS: Abs Immature Grans 0.02 10^3/uL (0.0-0.06); Absolute Basophil Count 0.05 10^3/uL (0.0-0.2); Absolute Eosinophil Count 0.22 10^3/uL (0.0-0.7); Absolute Lymphocyte Count 0.26 10^3/uL (1.2-3.4); Absolute Monocyte Count 0.65 10^3/uL (0.1-0.8); Absolute Neutrophil Count 5.82 10^3/uL (1.2-6.7); Basophils % 0.7; Eosinophils % 3.1; HCT 36.6 % (36.0-46.0); HGB 12.2 g/dL (11.2-15.7); Immature Grans % 0.3; Lymphocytes % 3.7; MCH 33.5 pg (27.0-33.0); MCHC 33.3 % (32.0-36.0); MCV 100.5 fL (80-95); Monocytes % 9.3; Neutrophils % 82.9; Nucleated RBC 0 %; Platelet Count 187 10^3/uL (130-400); RBC 3.64 10^6/uL (3.93-5.22); RDW 17.3 % (11.7-14.6); RDW-SD 64.9 fL; WBC 7.02 10^3/uL (4.4-10.8)
[2021-03-23 09:42] LABS: ALT 26 U/L (14-59); AST 13 U/L (15-37); Albumin 4.1 g/dL (3.4-5.0); Alkaline Phosphatase 131 U/L (46-116); Anion Gap 12.8 mmol/L (3-11); BUN 21 mg/dL (7-18); Bilirubin, Total 0.2 mg/dL (0.2-1.0); CO2 26.2 mmol/L (21.0-32.0); Calcium 9.2 mg/dL (8.5-10.1); Chloride 105 mmol/L (98-107); Estimated GFR 55.14 (mL/min/1.73m2); Glucose 108 mg/dL (74-106); Potassium 4.1 mmol/L (3.5-5.1); Sodium 144 mmol/L (136-145); Total Protein 7.6 g/dL (6.4-8.2)
[2021-03-24 09:35] LABS: IgA <13 mg/dL (85-499); IgG 900 mg/dL (610-1,616); IgM <12 mg/dL (35-242); Kappa Free Light Chain 22.06 mg/dL (0.33-1.94); Lambda Free Light Chain <0.44 mg/dL (0.57-2.63)
[2021-03-24 13:44] LABS: Albumin 61.7 % (55.8-66.1); Comment (See Note); Monoclonal Spike 7.7 % (None Seen); Total Protein 7.2 g/dL (6.3-8.2)
[2021-03-24 15:02] LABS: Immunotyping, Serum (See Note)
== END 2021-03-24 23:59 | disposition home or self-care (01) ==
LOC: INF 01:49
PROVIDERS: PCP Neuromusculoskeletal Medicine & OMM; Visit Provider Internal Medicine Hematology & Oncology
DX: C90.02 Multiple myeloma in relapse (principal); Z45.2 Encounter for adjustment and management of vascular access device
CPT/HCPCS: 36591; 80053; 82784; 83883; 84165; 85025; 86320

== ENCOUNTER 2021-04-20 02:08 | Outpatient (RCR) | payer OTHER, SELFPAY ==
[2021-04-06] MEDS: Normal Saline Flush 10 ML SYR IVP (09:14)
[2021-04-06 09:28] LABS: Abs Immature Grans 0.03 10^3/uL (0.0-0.06); Absolute Basophil Count 0.04 10^3/uL (0.0-0.2); Absolute Eosinophil Count 0.15 10^3/uL (0.0-0.7); Absolute Lymphocyte Count 0.25 10^3/uL (1.2-3.4); Absolute Neutrophil Count 5.76 10^3/uL (1.2-6.7); Basophils % 0.6; Eosinophils % 2.2; HCT 33.7 % (36.0-46.0); HGB 11.4 g/dL (11.2-15.7); Immature Grans % 0.4; Lymphocytes % 3.7; MCH 33.8 pg (27.0-33.0); MCHC 33.8 % (32.0-36.0); MPV 9.1 fL (8.0-11.0); Monocytes % 8.8; Neutrophils % 84.3; Nucleated RBC 0 %; Platelet Count 202 10^3/uL (130-400); RBC 3.37 10^6/uL (3.93-5.22); RDW 17.6 % (11.7-14.6); RDW-SD 65.1 fL; WBC 6.83 10^3/uL (4.4-10.8)
[2021-04-06 09:56] LABS: ALT 19 U/L (14-59); AST 12 U/L (15-37); Albumin 3.8 g/dL (3.4-5.0); Alkaline Phosphatase 96 U/L (46-116); Anion Gap 10.1 mmol/L (3-11); BUN 17 mg/dL (7-18); Bilirubin, Total 0.3 mg/dL (0.2-1.0); CO2 24.9 mmol/L (21.0-32.0); CREATININE 0.9 mg/dL (0.55-1.02); Calcium 8.6 mg/dL (8.5-10.1); Chloride 108 mmol/L (98-107); Glucose 97 mg/dL (74-106); Sodium 143 mmol/L (136-145); Total Protein 7.3 g/dL (6.4-8.2)
[2021-04-06 10:16] LABS: TSH (W/Ref FT4) 3.92 uIU/mL (0.36-3.74)
[2021-04-06 10:33] LABS: FREE T4 1.32 ng/dL (0.76-1.46)
[2021-04-06 16:47] LABS: T3,Free 2.5 pg/mL (2.8-5.3)
[2021-04-07 11:30] LABS: IgA <13 mg/dL (85-499); IgG 1015 mg/dL (610-1,616); IgM <12 mg/dL (35-242); Lambda Free Light Chain <0.44 mg/dL (0.57-2.63)
[2021-04-07 13:00] LABS: Albumin 60.8 % (55.8-66.1); Comment (See Note); Monoclonal Spike 9.2 % (None Seen); Total Protein 6.9 g/dL (6.3-8.2)
[2021-04-20] MEDS: Normal Saline Flush 10 ML SYR IVP (09:08)
[2021-04-20 09:14] LABS: Abs Immature Grans 0.01 10^3/uL (0.0-0.06); Absolute Basophil Count 0.05 10^3/uL (0.0-0.2); Absolute Eosinophil Count 0.12 10^3/uL (0.0-0.7); Absolute Lymphocyte Count 0.21 10^3/uL (1.2-3.4); Absolute Monocyte Count 0.49 10^3/uL (0.1-0.8); Absolute Neutrophil Count 3.89 10^3/uL (1.2-6.7); Eosinophils % 2.5; HCT 34.5 % (36.0-46.0); HGB 11.7 g/dL (11.2-15.7); Immature Grans % 0.2; Lymphocytes % 4.4; MCH 33.9 pg (27.0-33.0); MCHC 33.9 % (32.0-36.0); MPV 9.1 fL (8.0-11.0); Monocytes % 10.3; Neutrophils % 81.6; Nucleated RBC 0 %; Platelet Count 236 10^3/uL (130-400); RBC 3.45 10^6/uL (3.93-5.22); RDW 16.8 % (11.7-14.6); RDW-SD 62.5 fL; WBC 4.77 10^3/uL (4.4-10.8)
[2021-04-20 09:37] LABS: ALT 23 U/L (14-59); AST 13 U/L (15-37); Albumin 3.9 g/dL (3.4-5.0); Alkaline Phosphatase 98 U/L (46-116); Anion Gap 8.2 mmol/L (3-11); BUN 19 mg/dL (7-18); Bilirubin, Total 0.3 mg/dL (0.2-1.0); CO2 27.8 mmol/L (21.0-32.0); CREATININE 1.2 mg/dL (0.55-1.02); Calcium 8.9 mg/dL (8.5-10.1); Chloride 107 mmol/L (98-107); Estimated GFR 44.68 (mL/min/1.73m2); Glucose 137 mg/dL (74-106); Sodium 143 mmol/L (136-145); Total Protein 7.9 g/dL (6.4-8.2)
[2021-04-21 10:45] LABS: IgA <13 mg/dL (85-499); IgG 1106 mg/dL (610-1,616); IgM <12 mg/dL (35-242); Kappa Free Light Chain 37.12 mg/dL (0.33-1.94); Lambda Free Light Chain <0.44 mg/dL (0.57-2.63)
[2021-04-21 12:51] LABS: Albumin 59.3 % (55.8-66.1); Comment (See Note); Monoclonal Spike 12.7 % (None Seen); Total Protein 7.5 g/dL (6.3-8.2)
== END 2021-04-24 23:59 | disposition home or self-care (01) ==
LOC: INF 02:08
PROVIDERS: PCP Neuromusculoskeletal Medicine & OMM; Visit Provider Internal Medicine Hematology & Oncology
DX: C90.02 Multiple myeloma in relapse (principal); Z45.2 Encounter for adjustment and management of vascular access device
CPT/HCPCS: 36591; 80053; 82784; 83883; 84165; 84439; 84443; 84481; 85025

== ENCOUNTER 2021-05-18 03:27 | Outpatient (RCR) | payer OTHER, SELFPAY ==
[2021-04-27] MEDS: Normal Saline Flush 10 ML SYR IVP (08:20)
[2021-04-27 09:08] LABS: Abs Immature Grans 0.25 10^3/uL (0.0-0.06); Absolute Basophil Count 0.03 10^3/uL (0.0-0.2); Absolute Monocyte Count 0.36 10^3/uL (0.1-0.8); Absolute Neutrophil Count 4.04 10^3/uL (1.2-6.7); Basophils % 0.6; HCT 32.6 % (36.0-46.0); HGB 11.1 g/dL (11.2-15.7); MCH 34.5 pg (27.0-33.0); MCV 101.2 fL (80-95); MPV 10.1 fL (8.0-11.0); Monocytes % 7.2; Neutrophils % 81.2; Nucleated RBC 0 %; Platelet Count 142 10^3/uL (130-400); RBC 3.22 10^6/uL (3.93-5.22); RDW 16.5 % (11.7-14.6); RDW-SD 61.4 fL; WBC 4.98 10^3/uL (4.4-10.8)
[2021-04-27 09:19] LABS: ALT 35 U/L (14-59); AST 18 U/L (15-37); Albumin 3.6 g/dL (3.4-5.0); Alkaline Phosphatase 90 U/L (46-116); Anion Gap 9.9 mmol/L (3-11); BUN 22 mg/dL (7-18); Bilirubin, Total 0.2 mg/dL (0.2-1.0); CO2 28.1 mmol/L (21.0-32.0); CREATININE 1.1 mg/dL (0.55-1.02); Calcium 8.3 mg/dL (8.5-10.1); Chloride 106 mmol/L (98-107); Estimated GFR 49.39 (mL/min/1.73m2); Glucose 79 mg/dL (74-106); Potassium 4.1 mmol/L (3.5-5.1); Sodium 144 mmol/L (136-145); Total Protein 7.6 g/dL (6.4-8.2)
[2021-05-04] MEDS: Normal Saline Flush 10 ML SYR IVP (09:23)
[2021-05-04 09:29] LABS: Absolute Eosinophil Count 0.44 10^3/uL (0.0-0.7); Absolute Monocyte Count 0.73 10^3/uL (0.1-0.8); Nucleated RBC 0 %; RDW 15.7 % (11.7-14.6)
[2021-05-04 09:42] LABS: Abs Immature Grans 0.06 10^3/uL (0.0-0.06); Absolute Basophil Count 0.04 10^3/uL (0.0-0.2); Absolute Lymphocyte Count 0.15 10^3/uL (1.2-3.4); Absolute Neutrophil Count 2.66 10^3/uL (1.2-6.7); Eosinophils % 10.8; HCT 31.5 % (36.0-46.0); HGB 10.6 g/dL (11.2-15.7); Immature Grans % 1.5; Lymphocytes % 3.7; MCH 34.8 pg (27.0-33.0); MCHC 33.7 % (32.0-36.0); MCV 103.3 fL (80-95); Monocytes % 17.9; Neutrophils % 65.1; RBC 3.05 10^6/uL (3.93-5.22); RDW-SD 60.1 fL; WBC 4.08 10^3/uL (4.4-10.8)
[2021-05-04 09:49] LABS: ALT 18 U/L (14-59); AST 6 U/L (15-37); Albumin 3.5 g/dL (3.4-5.0); Alkaline Phosphatase 88 U/L (46-116); BUN 28 mg/dL (7-18); Bilirubin, Total 0.3 mg/dL (0.2-1.0); CREATININE 0.9 mg/dL (0.55-1.02); Calcium 8.7 mg/dL (8.5-10.1); Chloride 107 mmol/L (98-107); Glucose 111 mg/dL (74-106); Potassium 4.6 mmol/L (3.5-5.1); Sodium 142 mmol/L (136-145); Total Protein 7.4 g/dL (6.4-8.2)
[2021-05-04 10:02] LABS: Platelet Count 79 10^3/uL (130-400)
[2021-05-04 10:03] LABS: Diff Comment Diff Reviewed; Macrocytosis 1+; Poikilocytes 1+
[2021-05-12] MEDS: Normal Saline Flush 10 ML SYR IVP (10:36)
[2021-05-12 10:47] LABS: Abs Immature Grans 0.01 10^3/uL (0.0-0.06); HCT 29.2 % (36.0-46.0); HGB 9.9 g/dL (11.2-15.7); MCHC 33.9 % (32.0-36.0); MCV 100.3 fL (80-95); Nucleated RBC 0 %; Platelet Count 104 10^3/uL (130-400); RBC 2.91 10^6/uL (3.93-5.22); RDW-SD 55.2 fL
[2021-05-12 11:01] LABS: ALT 25 U/L (14-59); AST 12 U/L (15-37); Albumin 3.4 g/dL (3.4-5.0); Alkaline Phosphatase 82 U/L (46-116); Anion Gap 9.8 mmol/L (3-11); BUN 28 mg/dL (7-18); Bilirubin, Total 0.3 mg/dL (0.2-1.0); CO2 27.2 mmol/L (21.0-32.0); CREATININE 1.1 mg/dL (0.55-1.02); Calcium 8.3 mg/dL (8.5-10.1); Chloride 105 mmol/L (98-107); Estimated GFR 49.39 (mL/min/1.73m2); Glucose 121 mg/dL (74-106); Potassium 4.1 mmol/L (3.5-5.1); Sodium 142 mmol/L (136-145); Total Protein 7.3 g/dL (6.4-8.2)
[2021-05-12 11:03] LABS: Bands % 4
[2021-05-12 11:04] LABS: Absolute Eosinophil Count 0.18 10^3/uL (0.0-0.7); Absolute Lymphocyte Count 0.13 10^3/uL (1.2-3.4); Absolute Monocyte Count 0.22 10^3/uL (0.1-0.8)
[2021-05-12 11:05] LABS: Diff Comment Manual Differential
[2021-05-12 11:06] LABS: Poikilocytes 1+
[2021-05-12 11:09] LABS: Absolute Neutrophil Count 0.38 10^3/uL (1.2-6.7)
== END 2021-05-24 23:59 | disposition home or self-care (01) ==
LOC: INF 03:27
PROVIDERS: PCP Neuromusculoskeletal Medicine & OMM; Visit Provider Internal Medicine Hematology & Oncology
DX: C90.02 Multiple myeloma in relapse (principal); Z45.2 Encounter for adjustment and management of vascular access device; E03.9 Hypothyroidism, unspecified; R25.2 Cramp and spasm; S72.001A Fracture of unspecified part of neck of right femur, initial encounter for closed fracture; X58.XXXA Exposure to other specified factors, initial encounter
CPT/HCPCS: 36591; 80053; 85025

== ENCOUNTER 2021-06-22 03:54 | Outpatient (RCR) | payer OTHER, SELFPAY ==
[2021-05-25 09:16] LABS: HCT 27.8 % (36.0-46.0); HGB 9.3 g/dL (11.2-15.7); MCH 34.3 pg (27.0-33.0); MCHC 33.5 % (32.0-36.0); MCV 102.6 fL (80-95); Nucleated RBC 0 %; RBC 2.71 10^6/uL (3.93-5.22); RDW 15.7 % (11.7-14.6); RDW-SD 58.4 fL
[2021-05-25] MEDS: Normal Saline Flush 10 ML SYR IVP (09:17)
[2021-05-25 09:27] LABS: ALT 10 U/L (14-59); AST 8 U/L (15-37); Albumin 3.3 g/dL (3.4-5.0); Alkaline Phosphatase 70 U/L (46-116); Anion Gap 9.8 mmol/L (3-11); BUN 20 mg/dL (7-18); Bilirubin, Total 0.6 mg/dL (0.2-1.0); CO2 25.2 mmol/L (21.0-32.0); CREATININE 0.9 mg/dL (0.55-1.02); Calcium 8.4 mg/dL (8.5-10.1); Chloride 103 mmol/L (98-107); Glucose 170 mg/dL (74-106); Potassium 3.8 mmol/L (3.5-5.1); Sodium 138 mmol/L (136-145); Total Protein 7.1 g/dL (6.4-8.2)
[2021-05-25 09:47] LABS: WBC 1.63 10^3/uL (4.4-10.8)
[2021-05-25 10:03] LABS: Absolute Lymphocyte Count 0.18 10^3/uL (1.2-3.4); Absolute Neutrophil Count 1.39 10^3/uL (1.2-6.7); Atypical Lymphocytes % 3; Bands % 15; Platelet Count 105 10^3/uL (130-400)
[2021-05-25 10:04] LABS: Absolute Monocyte Count 0.07 10^3/uL (0.1-0.8)
[2021-05-25 10:05] LABS: Anisocytosis 1+; Diff Comment Manual Differential
[2021-05-25 10:06] LABS: Macrocytosis 1+; Poikilocytes 1+; Polychromasia Present
[2021-05-26 10:21] LABS: IgA <13 mg/dL (85-499); IgG 971 mg/dL (610-1,616); IgM <12 mg/dL (35-242); Kappa Free Light Chain 10.31 mg/dL (0.33-1.94); Lambda Free Light Chain <0.44 mg/dL (0.57-2.63)
[2021-05-26 13:28] LABS: Albumin 57.3 % (55.8-66.1); Comment (See Note); Total Protein 6.6 g/dL (6.3-8.2)
[2021-06-01] MEDS: Normal Saline Flush 10 ML SYR IVP (09:14)
[2021-06-01 09:21] LABS: Abs Immature Grans 0.15 10^3/uL (0.0-0.06); HCT 26.9 % (36.0-46.0); MCH 34.4 pg (27.0-33.0); MCHC 33.5 % (32.0-36.0); MCV 102.7 fL (80-95); MPV 9.7 fL (8.0-11.0); Platelet Count 158 10^3/uL (130-400); RBC 2.62 10^6/uL (3.93-5.22); RDW 16.5 % (11.7-14.6); RDW-SD 59.3 fL; WBC 2.25 10^3/uL (4.4-10.8)
[2021-06-01 09:35] LABS: ALT 12 U/L (14-59); AST 6 U/L (15-37); Albumin 3.2 g/dL (3.4-5.0); Alkaline Phosphatase 64 U/L (46-116); BUN 19 mg/dL (7-18); Bilirubin, Total 0.5 mg/dL (0.2-1.0); CREATININE 1.1 mg/dL (0.55-1.02); Calcium 8.6 mg/dL (8.5-10.1); Chloride 102 mmol/L (98-107); Estimated GFR 49.39 (mL/min/1.73m2); Glucose 138 mg/dL (74-106); Potassium 3.4 mmol/L (3.5-5.1); Sodium 140 mmol/L (136-145); Total Protein 7.1 g/dL (6.4-8.2)
[2021-06-01 09:46] LABS: Absolute Lymphocyte Count 0.18 10^3/uL (1.2-3.4); Absolute Monocyte Count 1.28 10^3/uL (0.1-0.8); Absolute Neutrophil Count 0.74 10^3/uL (1.2-6.7); Bands % 4; Diff Comment Manual Differential; Metamyelocytes % 2; Nucleated RBC 0 %
[2021-06-01 09:47] LABS: Hypochromasia 2+; Macrocytosis 2+; Poikilocytes 2+; Polychromasia Present
[2021-06-08] MEDS: Normal Saline Flush 10 ML SYR IVP (08:54)
[2021-06-08 09:14] LABS: Abs Immature Grans 0.01 10^3/uL (0.0-0.06); Absolute Lymphocyte Count 0.12 10^3/uL (1.2-3.4); Absolute Monocyte Count 0.21 10^3/uL (0.1-0.8); Absolute Neutrophil Count 1.63 10^3/uL (1.2-6.7); HCT 31.4 % (36.0-46.0); HGB 10.2 g/dL (11.2-15.7); Immature Grans % 0.5; Lymphocytes % 6.1; MCH 34.6 pg (27.0-33.0); MCHC 32.5 % (32.0-36.0); MCV 106.4 fL (80-95); MPV 10.8 fL (8.0-11.0); Monocytes % 10.7; Neutrophils % 82.7; Nucleated RBC 0 %; Platelet Count 186 10^3/uL (130-400); RBC 2.95 10^6/uL (3.93-5.22); RDW 16.9 % (11.7-14.6); RDW-SD 66.4 fL
[2021-06-08 09:21] LABS: WBC 1.97 10^3/uL (4.4-10.8)
[2021-06-08 09:29] LABS: Diff Comment Diff Reviewed; Macrocytosis 1+; Poikilocytes 2+
[2021-06-08 09:32] LABS: ALT 13 U/L (14-59); AST 19 U/L (15-37); Albumin 3.1 g/dL (3.4-5.0); Alkaline Phosphatase 66 U/L (46-116); Anion Gap 12.4 mmol/L (3-11); BUN 11 mg/dL (7-18); Bilirubin, Total 0.5 mg/dL (0.2-1.0); CO2 22.6 mmol/L (21.0-32.0); Calcium 8.5 mg/dL (8.5-10.1); Chloride 105 mmol/L (98-107); Estimated GFR 55.14 (mL/min/1.73m2); Glucose 106 mg/dL (74-106); Potassium 3.2 mmol/L (3.5-5.1); Sodium 140 mmol/L (136-145); Total Protein 7.1 g/dL (6.4-8.2)
[2021-06-15] MEDS: Normal Saline Flush 10 ML SYR IVP (08:45)
[2021-06-15 08:54] LABS: Abs Immature Grans 0.01 10^3/uL (0.0-0.06); Absolute Lymphocyte Count 0.06 10^3/uL (1.2-3.4); Absolute Monocyte Count 0.22 10^3/uL (0.1-0.8); Absolute Neutrophil Count 1.87 10^3/uL (1.2-6.7); HCT 31.6 % (36.0-46.0); HGB 10.3 g/dL (11.2-15.7); Immature Grans % 0.5; Lymphocytes % 2.8; MCH 35.2 pg (27.0-33.0); MCHC 32.6 % (32.0-36.0); MCV 107.8 fL (80-95); MPV 10.7 fL (8.0-11.0); Monocytes % 10.2; Neutrophils % 86.5; Nucleated RBC 0 %; Platelet Count 138 10^3/uL (130-400); RBC 2.93 10^6/uL (3.93-5.22); RDW 17.6 % (11.7-14.6); RDW-SD 69.2 fL; WBC 2.16 10^3/uL (4.4-10.8)
[2021-06-15 09:07] LABS: ALT 12 U/L (14-59); AST 10 U/L (15-37); Alkaline Phosphatase 68 U/L (46-116); Anion Gap 7.1 mmol/L (3-11); BUN 16 mg/dL (7-18); Bilirubin, Total 0.4 mg/dL (0.2-1.0); CO2 27.9 mmol/L (21.0-32.0); Calcium 8.5 mg/dL (8.5-10.1); Chloride 106 mmol/L (98-107); Estimated GFR 54.97 (mL/min/1.73m2); Glucose 143 mg/dL (74-106); Potassium 3.9 mmol/L (3.5-5.1); Sodium 141 mmol/L (136-145); Total Protein 7.1 g/dL (6.4-8.2)
[2021-06-22] MEDS: Normal Saline Flush 10 ML SYR IVP (08:53)
[2021-06-22 09:11] LABS: Abs Immature Grans 0.02 10^3/uL (0.0-0.06); Absolute Lymphocyte Count 0.05 10^3/uL (1.2-3.4); Absolute Monocyte Count 0.24 10^3/uL (0.1-0.8); HGB 10.5 g/dL (11.2-15.7); Immature Grans % 3.6; Lymphocytes % 9.1; MCH 36.2 pg (27.0-33.0); MCHC 33.9 % (32.0-36.0); MCV 106.9 fL (80-95); MPV 11.9 fL (8.0-11.0); Monocytes % 43.6; Neutrophils % 43.7; Nucleated RBC 0 %; RDW 16.4 % (11.7-14.6); RDW-SD 64.8 fL
[2021-06-22 09:31] LABS: Absolute Neutrophil Count 0.24 10^3/uL (1.2-6.7)
[2021-06-22 09:32] LABS: Platelet Count 67 10^3/uL (130-400); WBC 0.55 10^3/uL (4.4-10.8)
[2021-06-22 09:33] LABS: Anisocytosis 1+; Diff Comment Diff Reviewed; Macrocytosis 2+; Poikilocytes 2+; Polychromasia Present
[2021-06-22 09:39] LABS: ALT 18 U/L (14-59); AST 17 U/L (15-37); Albumin 3.1 g/dL (3.4-5.0); Alkaline Phosphatase 69 U/L (46-116); Anion Gap 10.6 mmol/L (3-11); BUN 18 mg/dL (7-18); Bilirubin, Total 0.5 mg/dL (0.2-1.0); CO2 25.4 mmol/L (21.0-32.0); CREATININE 0.9 mg/dL (0.55-1.02); Calcium 8.3 mg/dL (8.5-10.1); Chloride 104 mmol/L (98-107); Glucose 89 mg/dL (74-106); Potassium 3.5 mmol/L (3.5-5.1); Sodium 140 mmol/L (136-145); Total Protein 7.2 g/dL (6.4-8.2)
[2021-06-23 09:56] LABS: IgA <13 mg/dL (85-499); IgG 1150 mg/dL (610-1,616); IgM <12 mg/dL (35-242); Lambda Free Light Chain <0.44 mg/dL (0.57-2.63)
[2021-06-23 11:36] LABS: Albumin 52.7 % (55.8-66.1); Comment (See Note); Monoclonal Spike 16.2 % (None Seen); Total Protein 6.5 g/dL (6.3-8.2)
== END 2021-06-24 23:59 | disposition home or self-care (01) ==
LOC: INF 03:54
PROVIDERS: PCP Neuromusculoskeletal Medicine & OMM; Visit Provider Internal Medicine Hematology & Oncology
DX: C90.02 Multiple myeloma in relapse (principal); Z45.2 Encounter for adjustment and management of vascular access device
CPT/HCPCS: 36591; 80053; 82784; 83883; 84165; 85025

== ENCOUNTER 2021-07-17 01:55 | Outpatient (RCR) | payer OTHER, SELFPAY ==
[2021-06-29 09:05] LABS: Absolute Basophil Count 0.01 10^3/uL (0.0-0.2); Absolute Lymphocyte Count 0.11 10^3/uL (1.2-3.4); Absolute Monocyte Count 0.44 10^3/uL (0.1-0.8); Basophils % 1.1; HCT 31.3 % (36.0-46.0); HGB 10.2 g/dL (11.2-15.7); Lymphocytes % 12.2; MCH 35.4 pg (27.0-33.0); MCHC 32.6 % (32.0-36.0); MCV 108.7 fL (80-95); MPV 10.3 fL (8.0-11.0); Monocytes % 48.9; Neutrophils % 37.8; Nucleated RBC 0 %; RBC 2.88 10^6/uL (3.93-5.22); RDW 16.2 % (11.7-14.6); RDW-SD 65.8 fL
[2021-06-29 09:16] LABS: ALT 22 U/L (14-59); AST 19 U/L (15-37); Albumin 2.8 g/dL (3.4-5.0); Alkaline Phosphatase 69 U/L (46-116); Anion Gap 5.6 mmol/L (3-11); BUN 10 mg/dL (7-18); Bilirubin, Total 0.2 mg/dL (0.2-1.0); CO2 31.4 mmol/L (21.0-32.0); CREATININE 0.8 mg/dL (0.55-1.02); Calcium 8.5 mg/dL (8.5-10.1); Chloride 109 mmol/L (98-107); Glucose 106 mg/dL (74-106); Potassium 3.8 mmol/L (3.5-5.1); Sodium 146 mmol/L (136-145); Total Protein 6.6 g/dL (6.4-8.2)
[2021-06-29 09:19] LABS: Absolute Neutrophil Count 0.34 10^3/uL (1.2-6.7)
[2021-06-29 09:20] LABS: Anisocytosis 1+; Diff Comment Diff Reviewed; Macrocytosis 2+; Platelet Count 119 10^3/uL (130-400); Poikilocytes 1+
[2021-06-29] MEDS: Normal Saline Flush 10 ML SYR IVP (09:23)
== END 2021-07-25 23:59 | disposition home or self-care (01) ==
LOC: INF 01:55
PROVIDERS: PCP Neuromusculoskeletal Medicine & OMM; Visit Provider Internal Medicine Hematology & Oncology
DX: C90.02 Multiple myeloma in relapse (principal); Z45.2 Encounter for adjustment and management of vascular access device
CPT/HCPCS: 36591; 80053; 85025

== ENCOUNTER 2021-08-24 03:39 | Outpatient (RCR) | payer OTHER, SELFPAY ==
[2021-08-03] MEDS: Normal Saline Flush 10 ML SYR IVP (08:02)
[2021-08-03] MEDS: Heparin 500 UNITS/5 ML SYRINGE IV (08:03)
[2021-08-03 08:41] LABS: Abs Immature Grans 0.04 10^3/uL (0.0-0.06); Absolute Lymphocyte Count 0.16 10^3/uL (1.2-3.4); Absolute Monocyte Count 0.81 10^3/uL (0.1-0.8); Absolute Neutrophil Count 5.21 10^3/uL (1.2-6.7); HCT 36.1 % (36.0-46.0); HGB 11.8 g/dL (11.2-15.7); Immature Grans % 0.6; Lymphocytes % 2.6; MCH 34.5 pg (27.0-33.0); MCHC 32.7 % (32.0-36.0); MCV 105.6 fL (80-95); MPV 10.3 fL (8.0-11.0); Neutrophils % 83.8; Nucleated RBC 0 %; Platelet Count 197 10^3/uL (130-400); RBC 3.42 10^6/uL (3.93-5.22); RDW 14.2 % (11.7-14.6); RDW-SD 54.5 fL; WBC 6.22 10^3/uL (4.4-10.8)
[2021-08-03 08:56] LABS: ALT 90 U/L (14-59); AST 46 U/L (15-37); Albumin 3.1 g/dL (3.4-5.0); Alkaline Phosphatase 180 U/L (46-116); Anion Gap 7.3 mmol/L (3-11); BUN 22 mg/dL (7-18); Bilirubin, Total 0.2 mg/dL (0.2-1.0); CO2 27.7 mmol/L (21.0-32.0); CREATININE 1.1 mg/dL (0.55-1.02); Chloride 104 mmol/L (98-107); Estimated GFR 49.25 (mL/min/1.73m2); Glucose 99 mg/dL (74-106); Potassium 3.8 mmol/L (3.5-5.1); Sodium 139 mmol/L (136-145); Total Protein 8.8 g/dL (6.4-8.2)
[2021-08-04 08:58] LABS: IgA <13 mg/dL (85-499); IgG 2099 mg/dL (610-1,616); IgM <12 mg/dL (35-242); Lambda Free Light Chain <0.44 mg/dL (0.57-2.63)
[2021-08-04 14:10] LABS: Albumin 47.8 % (55.8-66.1); Comment (See Note); Monoclonal Spike 24.9 % (None Seen); Total Protein 8.2 g/dL (6.3-8.2)
== END 2021-08-24 23:59 | disposition home or self-care (01) ==
LOC: INF 03:39
PROVIDERS: PCP Neuromusculoskeletal Medicine & OMM; Visit Provider Internal Medicine Hematology & Oncology
DX: C90.02 Multiple myeloma in relapse (principal); Z45.2 Encounter for adjustment and management of vascular access device
CPT/HCPCS: 36591; 80053; 82784; 83883; 84165; 85025